=== PATIENT | female | born 1970 | race Caucasian/White ===

== ENCOUNTER → 2016-09-05 | Outpatient (REF) | payer BC | LOC: M LAB REF 16:54 | PROVIDERS: ATTEND Obstetrics & Gynecology | DX: Z12.4 Encounter for screening for malignant neoplasm of cervix (principal); N92.0 Excessive and frequent menstruation with regular cycle; R87.612 Low grade squamous intraepithelial lesion on cytologic smear of cervix (LGSIL) | CPT/HCPCS: 88304; G0123 ==

== ENCOUNTER → 2016-10-01 | Outpatient (REF) | payer BC | LOC: M LAB REF 09:00 | PROVIDERS: ATTEND Obstetrics & Gynecology | DX: R87.612 Low grade squamous intraepithelial lesion on cytologic smear of cervix (LGSIL) (principal) ==

== ENCOUNTER 2016-10-09 08:53 | Day surgery (SDC) | payer BC ==
[~2016-10-09] VITALS: Ht 162.6 cm; Wt 75.7 kg
[~2016-10-09 08:53] MED LIST: BUPIVACAINE HCL 0.25% 30 ML VIAL As Ordered ONE; LIDOCAINE 2% INJ 100 MG/5 ML SDV (FOR ANES.) As Ordered ONE; METHYLENE BLUE 0.5% (5MG/ML) 10 ML AMP (PROVAYBLUE)(Q9968 PER 1MG) As Ordered ONE; MIDAZOLAM INJ 2 MG/2 ML VIAL (J2250) As Ordered ONE; PROPOFOL 200 MG/20 ML VIAL As Ordered ONE; ROCURONIUM BROMIDE 50 MG/5 ML VIAL As Ordered ONE; dexameTHASONE 4 MG/ML 1ML VIAL (J1100) As Ordered ONE; fentaNYL 250 MCG/5 ML INJECTION (J3010) As Ordered ONE
[2016-10-09] MEDS ORDERED: LR 1,000 ML IV SCH ×3 (09:00→14:45)
[2016-10-09] MEDS: DOCUSATE SODIUM 100 MG CAP PO SCH ×2 (09:00→21:57)
[2016-10-09] MEDS ORDERED: SCOPOLAMINE 1.5 MG TRANSDERMAL As Ordered ONE (09:32)
[2016-10-09 09:50] LABS: MEAN CORPUSCULAR HEMOGLOBIN 20.7 pg (27.0-33.0); RED CELL DISTRIBUTION WIDTH 15.7 % (11.5-14.5); WHITE BLOOD COUNT 8.3 K/mm3 (4.0-10.0)
[2016-10-09] MEDS ORDERED: SCOPOLAMINE 1.5 MG TRANSDERMAL TOP ONE (10:30)
[2016-10-09] MEDS ORDERED: dexameTHASONE 4 MG/ML 1ML VIAL (J1100) As Ordered ONE (10:36)
[2016-10-09] MEDS ORDERED: METOCLOPRAMIDE INJ 10MG/2ML VIAL (J2765) As Ordered ONE (10:37)
[2016-10-09] MEDS ORDERED: PHENYLephrine HCL 500 MCG/5 ML (100MCG/ML) SYRINGE (J2370) As Ordered ONE (10:54)
[2016-10-09] MEDS ORDERED: ROCURONIUM BROMIDE 50 MG/5 ML VIAL As Ordered ONE (11:03)
[2016-10-09] MEDS ORDERED: HYDROmorphone HCL 2 MG/ML 1ML VIAL (J1170) As Ordered ONE (11:28)
[2016-10-09] MEDS ORDERED: fentaNYL 100 MCG/2 ML INJECTION (J3010) As Ordered ONE (12:14)
[2016-10-09] MEDS ORDERED: ONDANSETRON 4MG/2ML VIAL (J2405) As Ordered ONE (12:29)
[2016-10-09] MEDS ORDERED: KETOROLAC 60 MG/2 ML VIAL (J1885) As Ordered ONE (12:29)
[2016-10-09] MEDS ORDERED: GLYCOPYRROLATE INJ 0.2 MG/ML 2 ML VIAL As Ordered ONE (12:30)
[2016-10-09] MEDS ORDERED: NEOSTIGMINE 1MG/ML 5 ML SYRINGE (J2710) As Ordered ONE (12:31)
[2016-10-09] MEDS ORDERED: ONDANSETRON 4MG/2ML VIAL (J2405) IV PRN ×2 (13:45→14:45)
[2016-10-09] MEDS ORDERED: PERCOCET 5MG/325MG TAB PO PRN ×3 (13:45→14:45)
[2016-10-09] MEDS ORDERED: PROMETHAZINE INJ 25 MG/ML VIAL (J2550) IV PRN (13:45)
[2016-10-09] MEDS ORDERED: LABETALOL HCL 100 MG/20 ML VIAL As Ordered ONE (13:59)
[2016-10-09] MEDS ORDERED: fentaNYL 100 MCG/2 ML INJECTION (J3010) IV PRN (14:45)
[2016-10-09] MEDS ORDERED: METOCLOPRAMIDE INJ 10MG/2ML VIAL (J2765) IV PRN (14:45)
[2016-10-09] MEDS ORDERED: MORPHINE 2 MG/ML 1ML SYRINGE IV PRN (14:45)
[2016-10-09 15:20] VITALS: BP 134/73
[2016-10-09 15:50] VITALS: BP 121/70
[2016-10-09] MEDS: LR 1,000 ML IV SCH ×2 (16:35→21:57)
[2016-10-09 16:50] VITALS: BP 109/61
[2016-10-09 17:50] VITALS: BP_SYST 109; BP_SYST 62; BP_DIAS 62
[2016-10-09] MEDS: KETOROLAC 30 MG/ML VIAL (J1885) IV SCH (18:21)
[2016-10-09 18:50] VITALS: BP 117/58
[2016-10-09 20:00] VITALS: BP 104/60
[2016-10-10] VITALS: BP 95/50
[2016-10-10] MEDS: KETOROLAC 30 MG/ML VIAL (J1885) IV SCH ×2 (00:19→06:24)
[2016-10-10 04:00] VITALS: BP 96/53
[2016-10-10 07:38] LABS: BASO % 0.1 % (0.0-1.0); LARGE UNSTAINED CELL # 0.1 K/mm3 (0.0-0.4); LARGE UNSTAINED CELL % 0.8 % (0.0-4.0); LYMPH # 1.1 K/mm3 (1.5-4.5); MEAN CORPUSCULAR HEMOGLOBIN 20.5 pg (27.0-33.0); MEAN CORPUSCULAR HGB CONC 30.1 g/dl (32.0-36.5); MEAN CORPUSCULAR VOLUME 68.2 fl (80.0-96.0); MONO # 0.6 K/mm3 (0.0-0.8); MONO % 3.7 % (0.0-5.0); NEUTROPHILS # 14.5 K/mm3 (1.8-7.7); NEUTROPHILS % 88.4 % (36.0-66.0); PLATELET COUNT, AUTOMATED 247 k/mm3 (150-450); WHITE BLOOD COUNT 16.3 K/mm3 (4.0-10.0)
[2016-10-10 08:00] VITALS: BP 115/61
[2016-10-10 08:15] LABS: ADD MORPHOLOGY? YES
[2016-10-10 08:18] VITALS: BP 96/53
[2016-10-10] MEDS: DOCUSATE SODIUM 100 MG CAP PO SCH (08:18)
[2016-10-10 08:50] LABS: ANISOCYTOSIS 2+; HYPOCHROMASIA 2+; MICROCYTOSIS 2+; POIKILOCYTOSIS 1+
[2016-10-10] MEDS ORDERED: OXYC1TAB23 PO (09:29)
== END 2016-10-10 09:55 | disposition home or self-care (01) ==
LOC: M SDC 08:53 → M PED 15:20 → M SDC 10-10 09:55
PROVIDERS: ATTEND Obstetrics & Gynecology
DX: N92.6 Irregular menstruation, unspecified (principal); N72 Inflammatory disease of cervix uteri
CPT/HCPCS: 36415; 58572; 85025; 85027; 86850; 86900; 86901; 88309; 96374; 96376; A6024; J0690; J1100; J1170; J1885; J2250; J2370; J2405; J2710; J2765; J3010; Q9968

== ENCOUNTER → 2019-03-24 | Outpatient (REF) | payer BC ==
[~2019-03-24] MED LIST changes: -BUPIVACAINE HCL 0.25% 30 ML VIAL As Ordered ONE; -LIDOCAINE 2% INJ 100 MG/5 ML SDV (FOR ANES.) As Ordered ONE; -METHYLENE BLUE 0.5% (5MG/ML) 10 ML AMP (PROVAYBLUE)(Q9968 PER 1MG) As Ordered ONE; -MIDAZOLAM INJ 2 MG/2 ML VIAL (J2250) As Ordered ONE; +OXYC1TAB23 PO; -PROPOFOL 200 MG/20 ML VIAL As Ordered ONE; -ROCURONIUM BROMIDE 50 MG/5 ML VIAL As Ordered ONE; -dexameTHASONE 4 MG/ML 1ML VIAL (J1100) As Ordered ONE; -fentaNYL 250 MCG/5 ML INJECTION (J3010) As Ordered ONE
== END ==
LOC: M LAB LCGH 13:51
PROVIDERS: ATTEND Nurse Practitioner Family
DX: C44.81 Basal cell carcinoma of overlapping sites of skin (principal)

== ENCOUNTER → 2019-05-26 | Outpatient (REF) | LOC: M LAB LCGH 11:57 | PROVIDERS: ATTEND Nurse Practitioner Family | DX: D23.71 Other benign neoplasm of skin of right lower limb, including hip (principal) ==